=== PATIENT | male | born 1995 | race American Indian/Alaskan Native ===

== ENCOUNTER 2022-12-13 01:45 | Emergency (ER) | payer OTHER, SELFPAY ==
[2022-12-13 01:52] VITALS: BP 117/81; BP 130/80; PULSE 100; PULSE 86; RESP 18; TEMP 36.8; O2SAT 97; O2SAT 98; BMI 29.8
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
--- NOTE | 2022-12-13 03:08 | ED.ALCOHOL ---
HPI - Alcohol General Chief Complaint: ETOH/Substance Use Stated Complaint: etoh Time Seen by Provider: 12/13/22 02:24 Source: patient and EMS Mode of arrival: EMS Limitations: no limitations History of Present Illness HPI narrative: Patient comes to the emergency room via ambulance. Patient is intoxicated. Patient brought to the ED. Patient denies SI or HI. Patient denies any injuries or falling. Patient states he has no sober ride to pick him up. Related Data Allergies Allergy/AdvReac Type Severity Reaction Status Date / Time Milk Containing Products Allergy Unknown UNKNOWN Unverified 12/02/19 19:25 (Dairy) [MILK CONTAINING PRODUCTS] Review of Systems Review of Systems: Constitutional : No Weight loss, No Fever, No Chills, No Night Sweats, No Fatigue, No Malaise ENT/Mouth : No Hearing loss, No Ear Pain, No Nasal Congestion, No Sinus Pain, No Hoarseness, No sore throat, No Rhinorrhea, No Swallowing Difficulty Eyes: No Eye Pain, No Swelling, No Redness, No Foreign Body, No Discharge, No Vision Changes Cardiovascular : No Chest Pain, No SOB, No Dyspnea on Exertion, No Orthopnea, No Edema, No Palpitations Respiratory : No Cough, No Sputum, No Wheezing, No Smoke Exposure, No Dyspnea Gastrointestinal : No Nausea, No Vomiting, No Diarrhea, No Constipation, No abdominal Pain, No Hematochezia, No Melena Genitourinary : no irregular bleeding, No Dysuria, No Urinary Frequency, No Hematuria, No Urinary Incontinence, No Urgency, No Flank Pain, No Urinary Flow Changes, No Hesitancy Musculoskeletal : No joint pain, No Myalgias, No Joint Swelling Skin : No Skin Lesions, No rash Neuro : No Weakness, No Numbness, No Paresthesias, No Loss of Consciousness, No Dizziness, No Headache Psych : No Anxiety/Panic, No Depression, No SI/HI/AH/VH, admits to drinking alcohol Heme/Lymph: No Bruising, No Bleeding,No Lymphadenopathy Endocrine : No Polyuria, No Polydipsia, No Temperature Intolerance PMFSH Past Medical History Medical History Alcohol abuse Social History Social History Alcohol intake: current Smoked in Last 30 Days: Yes Use of substances other than those prescribed or required for medical reasons: Yes Substance Use Type: Marijuana Substance Use Frequency: Chronic Longstanding Advance Directives: No Advance Directives Information Provided: Yes Physical Exam ED Vital Signs: Vital Signs - 24 hr 12/13/22 01:52 12/13/22 03:33 Temperature 98.2 F 98.2 F Pulse Rate 100 88 Respiratory Rate 18 16 Blood Pressure 117/81 103/50 L Pulse Oximetry 97 98 Oxygen Delivery Method Room Air Room Air BMI result Body Mass Index 29.8 Const Other: Appearance: Alert. Oriented X3. No acute distress. Intoxicated Eyes: Pupils equal, round and reactive to light. ENT: Pharynx normal. Neck: Normal inspection. Neck supple. No lymph nodes noted. No crepitus CVS: Normal heart rate and rhythm. Pulses normal. Normal S1 and S2 Respiratory: No respiratory distress. Breath sounds normal. No Wheezing. No rales Abdomen: Soft and nontender. No rigidity. No distention. Skin: Skin warm and dry. Normal skin color. Normal skin turgor. Extremities: No lower extremity edema. No Lacerations. No Rash Neuro: Oriented X 3. No motor deficit. No sensory deficit. Moving all extremities. No slurred speech. CN 2 through 12 grossly intact Psych: calm, cooperative, intoxicated Course Course Course Narrative: -patient is awake, alert and oriented x3, but intoxicated -patient denies SI or HI, no trauma -patient does not have a sober ride -plan: Metabolized to freedom -physician observation started at 03:00 Medical Decision Making Medical Decision Making [facility] Narrative: -patient's called and over for the patient. Patient will be going home soon. Patient awake, alert, stable vitals Differential Diagnosis Differential Diagnoses: The differential diagnosis associated with the presentation includes (Alcohol intoxication, substance abuse) Discharge Plan Discharge Clinical Impression: Alcoholic intoxication Patient Disposition: Home, Self-Care Instructions: Alcohol Intoxication (ED) Additional Instructions: Please follow-up with your primary care physician tomorrow. If you have any worsening or new symptoms, please return to the emergency room or call 911
[2022-12-13 03:33] VITALS: BP 103/50; PULSE 88; RESP 16; TEMP 36.8; O2SAT 98
--- NOTE | 2022-12-13 03:41 | MHC.EDTECH ---
THIS PCT ASSUMED CARE OF PT AT 0300 ,PT SLEEPING ,VITALS SIGN TAKEN ,PT IS COMFORTABLE AND HAS NO APPARANT DISTRESS ,WILL CONTINUE TO MONITOR .
== END 2022-12-13 04:39 | disposition home or self-care (01) ==
LOC: HO.ED 04:30
PROVIDERS: Emergency Provider Emergency Medicine; PCP Internal Medicine
DX: F10.129 Alcohol abuse with intoxication, unspecified (principal); Y90.9 Presence of alcohol in blood, level not specified
CPT/HCPCS: 99282; 99284

== ENCOUNTER 2024-03-11 07:46 | Emergency (ER) | payer OTHER, SELFPAY ==
[2024-03-11 07:58] VITALS: BP 165/81; PULSE 89; RESP 16; TEMP 37; O2SAT 100; BMI 26.2
== END 2024-03-11 09:31 | disposition left against medical advice (07) ==
LOC: HO.ED 09:30
PROVIDERS: Emergency Provider Emergency Medicine
DX: M79.10 Myalgia, unspecified site (principal); Z53.21 Procedure and treatment not carried out due to patient leaving prior to being seen by health care provider
CPT/HCPCS: 99281

== ENCOUNTER 2024-03-12 04:09 | Emergency (ER) | payer OTHER, SELFPAY ==
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
--- NOTE | ~2024-03-12 | XR_ITS ---
EXAMINATION: XR CHEST CLINICAL INFORMATION: trauma COMPARISON: None available. TECHNIQUE: 2 views of the chest were obtained. FINDINGS: The cardiac, hilar, and mediastinal contours are normal. The lungs are clear bilaterally. There is no pneumothorax or pleural effusion. There is no focal osseous or soft tissue abnormality. No fracture is evident. XR/XR chest 2V IMPRESSION: Normal chest. Electronically signed by: Brandyn Elias MD 03/12/2024 09:17 AM [facility]
[2024-03-12 04:14] VITALS: BP 137/95; BP 147/97; PULSE 102; PULSE 98; RESP 18; TEMP 36.5; O2SAT 100; O2SAT 97; BMI 26.9
[2024-03-12 04:38] LABS: Basophils Percent Auto 0.3 % (0-2); Eosinophils Absolute Auto 0.3 X10*3/uL (0.0-0.4); Eosinophils Percent Auto 2.8 % (0-4); Hematocrit 42.8 % (42.0-52.0); Hemoglobin 14.7 g/dl (14.0-18.0); Imm Gran Abs Auto 0.02 X10*3/uL (0.00-0.03); Imm Gran Pct Auto 0.2 % (0.0-0.4); Lymphocytes Percent Auto 30.6 % (20-40); MANUAL DIFF FLAG SCAN; Mean Corpuscular HGB Conc 34.3 g/dl (31.0-36.0); Mean Corpuscular Hemoglobin 31.5 pg (27.0-33.0); Mean Corpuscular Volume 91.6 fL (80.0-98.0); Mean Platelet Volume 9.7 fL (9.4-12.4); Monocytes Absolute Auto 1.7 X10*3/uL (0.1-1.2); Monocytes Percent Auto 16.9 % (2-11); Neutrophils Absolute Auto 4.8 x10*3/uL (2.0-8.3); Neutrophils Percent Auto 49.2 % (45-73); Platelet Count 310 X10*3/uL (160-400); Red Blood Count 4.67 X10*6/uL (4.60-5.80); Red Cell Distribution Width 13.9 % (11.0-16.0); SCAN SMEAR FLAG 1; White Blood Count 9.8 X10*3/uL (4.8-10.8)
[2024-03-12 04:55] LABS: Alanine Aminotransferase 22 U/L (0-40); Albumin Level 4.7 g/dL (3.5-5.0); Alkaline Phosphatase 61 U/L (39-117); Anion Gap 13 (12-20); Aspartate Amino Transferase 25 U/L (5-37); Bilirubin Total 0.3 mg/dL (0.0-1.0); Blood Urea Nitrogen 4 mg/dL (9-16); Calcium 9.4 mg/dL (8.4-10.2); Carbon Dioxide 28 mmol/L (22-29); Chloride 101 mmol/L (96-108); Creatinine Clr Calc Pharmacy 142.9; Estimated Glomerular Filt Rate > 60; Ethanol < 10 mg/dL; Glucose Fasting 101 mg/dL (60-99); Potassium 3.6 mmol/L (3.3-5.1); Sodium 138 mmol/L (135-145); Total Protein 7.8 g/dL (6.5-8.0)
[2024-03-12 05:07] LABS: SLIDE REVIEW VERIFIED
[2024-03-12 05:12] LABS: Amphetamine Screen Urine Not Detected (Not Detect); Barbiturates, Urine Not Detected (Not Detect); Benzodiazepines Screen Urine Not Detected (Not Detect); Buprenorphine Scr Not Detected (Not Detect); Cannabinoid Screen Urine POSITIVE (Not Detect); Cocaine Screen Urine Not Detected (Not Detect); Fentanyl, urine Not Detected (Not Detect); Methadone Screen, Urine Not Detected (Not Detect); Opiate Screen Urine Not Detected (Not Detect); Oxycodone Screen Urine Not Detected (Not Detect); Phencyclidine Screen Urine Not Detected (Not Detect)
[2024-03-12 06:18] VITALS: BP 123/79; PULSE 81; RESP 16; TEMP 36.8; O2SAT 98
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
--- NOTE | 2024-03-12 08:15 | PC.NURSE ---
calm and cooperative in bed. aware of plan for care team eval. denies SI at this time. sitter at bedside,.
[2024-03-12 08:25] VITALS: BP 130/74; PULSE 85; RESP 14; TEMP 37.1; O2SAT 97
--- NOTE | 2024-03-12 09:03 | PC.NURSE ---
this patient was brought over from main ED at 9am, upon coming over to the POD- care team currently speaking with patient
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
--- NOTE | 2024-03-12 13:16 | MHC.CARE ---
Pt denies SI with any plan or intent at this time. Pt is able to safety plan at this time and will be discharged at this time. Provider in agreement.
[2024-03-12 13:37] VITALS: BP 128/73; PULSE 86; RESP 16; TEMP 36.7; O2SAT 97
== END 2024-03-12 13:38 | disposition home or self-care (01) ==
PROVIDERS: Emergency Provider Emergency Medicine
DX: F33.1 Major depressive disorder, recurrent, moderate (principal); M79.10 Myalgia, unspecified site; R51.9 Headache, unspecified; M54.2 Cervicalgia; R07.89 Other chest pain; R45.851 Suicidal ideations; Z51.81 Encounter for therapeutic drug level monitoring; Z79.899 Other long term (current) drug therapy
CPT/HCPCS: 36415; 70450; 71046; 72125; 80053; 80307; 85025; 99284; S9485

== ENCOUNTER → 2024-03-12 07:36 | Outpatient (BNV) | payer OTHER, SELFPAY | PROVIDERS: Emergency Provider Emergency Medicine; Visit Provider Radiology Diagnostic Radiology | DX: M54.2 Cervicalgia (principal); J34.9 Unspecified disorder of nose and nasal sinuses; R07.9 Chest pain, unspecified | CPT/HCPCS: 70450; 71046; 72125 ==

== ENCOUNTER 2024-03-15 10:25 | Emergency (ER) | payer OTHER, SELFPAY ==
[2024-03-15 10:42] VITALS: BP 138/98; PULSE 111; RESP 20; TEMP 36.1; O2SAT 100; BMI 25.8
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
[2024-03-15 11:27] LABS: MANUAL DIFF FLAG NO
[2024-03-15 11:29] LABS: Basophils Percent Auto 0.3 % (0-2); Eosinophils Absolute Auto 0.1 X10*3/uL (0.0-0.4); Eosinophils Percent Auto 1.3 % (0-4); Hemoglobin 15.4 g/dl (14.0-18.0); Imm Gran Abs Auto 0.01 X10*3/uL (0.00-0.03); Imm Gran Pct Auto 0.1 % (0.0-0.4); Lymphocytes Absolute Auto 2.6 X10*3/uL (1.2-4.9); Lymphocytes Percent Auto 36.7 % (20-40); Mean Corpuscular HGB Conc 34.2 g/dl (31.0-36.0); Mean Corpuscular Volume 93.4 fL (80.0-98.0); Mean Platelet Volume 9.7 fL (9.4-12.4); Monocytes Absolute Auto 0.7 X10*3/uL (0.1-1.2); Monocytes Percent Auto 9.6 % (2-11); Neutrophils Absolute Auto 3.6 x10*3/uL (2.0-8.3); Platelet Count 330 X10*3/uL (160-400); Red Blood Count 4.82 X10*6/uL (4.60-5.80); Red Cell Distribution Width 13.7 % (11.0-16.0)
[2024-03-15 11:43] LABS: Alanine Aminotransferase 19 U/L (0-40); Albumin Level 4.6 g/dL (3.5-5.0); Alkaline Phosphatase 56 U/L (39-117); Anion Gap 13 (12-20); Aspartate Amino Transferase 20 U/L (5-37); Bilirubin Direct < 0.2 mg/dL (0.0-0.5); Bilirubin Total 0.2 mg/dL (0.0-1.0); Blood Urea Nitrogen 6 mg/dL (9-16); Calcium 9.7 mg/dL (8.4-10.2); Carbon Dioxide 29 mmol/L (22-29); Chloride 106 mmol/L (96-108); Estimated Glomerular Filt Rate > 60; Glucose Random 114 mg/dL (60-115); Potassium 4.7 mmol/L (3.3-5.1); Sodium 143 mmol/L (135-145); Total Protein 7.7 g/dL (6.5-8.0)
[2024-03-15 11:44] LABS: Ethanol < 10 mg/dL
[2024-03-15 13:34] VITALS: BP 138/98; PULSE 90; RESP 20; TEMP 36.1; O2SAT 100
== END 2024-03-15 13:35 | disposition home or self-care (01) ==
PROVIDERS: Emergency Provider Emergency Medicine
DX: J01.00 Acute maxillary sinusitis, unspecified (principal); R05.9 Cough, unspecified
CPT/HCPCS: 36415; 80048; 80076; 80307; 85025; 99283

== ENCOUNTER 2024-03-17 03:26 | Emergency (ER) | payer OTHER, SELFPAY ==
[2024-03-17 03:36] VITALS: BP 118/84; BP 135/87; PULSE 80; PULSE 98; RESP 16; TEMP 36.8; O2SAT 96; BMI 28.0
[2024-03-17 04:27] LABS: Appearance Urine Clear; Color Urine Yellow; Glucose Urine UA Negative (Negative); Leukocyte Esterase Urine Negative (Negative); Nitrite Urine Negative (Negative); Specific Gravity - Urine 1.015 (1.005-1.025); Urine Blood Negative (Negative); Urine Ketones Trace mg/dL (Negative); Urine Protein Negative (Neg-Trace)
[2024-03-17 04:33] LABS: Bacteria Urine None Seen (None Seen); Hyaline Casts Urine 0-2 /LPF (0-2); RBC Urine 0-2 /HPF (0-2); Squamous Epithelial Cell Urine 0-2 /HPF (0-2); WBC Urine 0-5 /HPF (0-5)
[2024-03-17 04:40] LABS: Amphetamine Screen Urine Not Detected (Not Detect); Barbiturates, Urine Not Detected (Not Detect); Benzodiazepines Screen Urine Not Detected (Not Detect); Buprenorphine Scr Not Detected (Not Detect); Cannabinoid Screen Urine POSITIVE (Not Detect); Cocaine Screen Urine Not Detected (Not Detect); Fentanyl, urine Not Detected (Not Detect); Methadone Screen, Urine Not Detected (Not Detect); Opiate Screen Urine Not Detected (Not Detect); Oxycodone Screen Urine Not Detected (Not Detect); Phencyclidine Screen Urine Not Detected (Not Detect)
[2024-03-17 04:49] LABS: Basophils Percent Auto 0.2 % (0-2); Eosinophils Absolute Auto 0.3 X10*3/uL (0.0-0.4); Eosinophils Percent Auto 2.3 % (0-4); Hematocrit 42.6 % (42.0-52.0); Imm Gran Abs Auto 0.02 X10*3/uL (0.00-0.03); Imm Gran Pct Auto 0.2 % (0.0-0.4); Lymphocytes Absolute Auto 4.2 X10*3/uL (1.2-4.9); Lymphocytes Percent Auto 38.9 % (20-40); MANUAL DIFF FLAG NO; Mean Corpuscular HGB Conc 35.2 g/dl (31.0-36.0); Mean Corpuscular Hemoglobin 32.1 pg (27.0-33.0); Mean Platelet Volume 9.5 fL (9.4-12.4); Monocytes Absolute Auto 0.9 X10*3/uL (0.1-1.2); Monocytes Percent Auto 8.4 % (2-11); Neutrophils Absolute Auto 5.4 x10*3/uL (2.0-8.3); Platelet Count 345 X10*3/uL (160-400); Red Blood Count 4.68 X10*6/uL (4.60-5.80); Red Cell Distribution Width 13.8 % (11.0-16.0); White Blood Count 10.9 X10*3/uL (4.8-10.8)
[2024-03-17 05:02] LABS: Alanine Aminotransferase 18 U/L (0-40); Albumin Level 4.5 g/dL (3.5-5.0); Alkaline Phosphatase 55 U/L (39-117); Anion Gap 13 (12-20); Aspartate Amino Transferase 26 U/L (5-37); Bilirubin Total 0.3 mg/dL (0.0-1.0); Blood Urea Nitrogen 6 mg/dL (9-16); Calcium 9.2 mg/dL (8.4-10.2); Carbon Dioxide 24 mmol/L (22-29); Chloride 109 mmol/L (96-108); Creatinine Clr Calc Pharmacy 160.5; Estimated Glomerular Filt Rate > 60; Ethanol 57 mg/dL; Glucose Random 104 mg/dL (60-115); Sodium 142 mmol/L (135-145); Total Protein 7.4 g/dL (6.5-8.0)
[2024-03-17 05:24] VITALS: BP 124/95; PULSE 90; RESP 18; TEMP 36.8; O2SAT 98
[2024-03-17 05:26] LABS: Influenza A PCR NEGATIVE (Negative); Influenza B PCR NEGATIVE (Negative); Resp Syncy Virus RNA Qual PCR NEGATIVE (Negative); SARS COV2 PCR INHOUSE NEGATIVE (Negative)
--- NOTE | 2024-03-17 06:07 | PC.NURSE ---
this rn assumed care of pt, pt a&ox4, respirations even and unlabored. pt states he will speak later and does not wish to speak to this rn at this time. 1:1 sitter at bedside.
--- NOTE | 2024-03-17 06:43 | ED_ITS ---
HPI - General Adult General Chief complaint: Psychiatric Symptoms Stated complaint: Sect 12 Made SI Statements w/plan to jump in river Time Seen by Provider: 03/17/24 06:36 Source: patient and EMS Mode of arrival: EMS Limitations: no limitations History of Present Illness ED Provider: Talia Li PA-C HPI narrative: Patient is a 29 year old assigned male at with a history of alcohol abuse presenting to the emergency department today with suicidal ideation. Patient declined to answer any questions asked about his suicidal ideation at this time continually stating that he'd talk about it later . EMS states that the patient was arrested for a DUI earlier and when making bail he made comments to people about being suicidal and stating he'd jump into the river. Patient denies any dizziness, lightheadedness, abdominal pain, nausea, vomiting, fever, chills, blurry vision, double vision, loss of vision, chest pain, difficulty breathing, shortness of breath, back pain, night sweats, pain with urination, increased urinary frequency, increased urinary urgency, blood in his urine or stool, syncope or a near syncopal episode, recent trauma or falls, bowel incontinence, bladder incontinence, or any other complaints at this time. Relieving factors: none Exacerbating factors: none Associated symptoms: denies other symptoms Treatments prior to arrival: none Related Data Home Medications ?Medication ?Instructions ?Recorded ?Confirmed No Known Home Meds 03/17/24 03/17/24 Allergies Allergy/AdvReac Type Severity Reaction Status Date / Time Milk Containing Products Allergy Unknown UNKNOWN Verified 03/17/24 03:37 (Dairy) [MILK CONTAINING PRODUCTS] Review of Systems 2 Constitutional: Constitutional: Reports no additional constitutional complaints, Denies chills, Denies fever(s) and Denies night sweats Eyes: Eyes: Reports no additional eye complaints, Denies blurry vision, Denies change in vision, Denies diplopia, Denies eye discharge, Denies loss of vision and Denies eye pain ENT: Denies dizziness Cardiovascular: Cardiovascular: Reports no additional cardiovascular complaints, Denies chest pain, Denies lightheadedness, Denies Loss of Consciousness and Denies dyspnea Respiratory: Respiratory: Reports no additional respiratory complaints and Denies dyspnea Gastrointestinal: Gastrointestinal: Reports no additional gastrointestinal complaints, Denies abdominal pain, Denies melena, Denies hematochezia, Denies change in bowel habits and Denies change in stool character Genitourinary: Genitourinary: Reports no additional male genitourinary complaints, Denies hematuria, Denies oliguria, Denies difficulty urinating, Denies dysuria, Denies urinary frequency, Denies urinary hesitancy, Denies urinary incontinence and Denies urinary urgency Musculoskeletal: Musculoskeletal: Reports no additional musculoskeletal complaints, Denies numbness and Denies tingling Neurologic: Denies dizziness, Denies loss of vision, Denies numbness and Denies tingling Psychiatric: Psychiatric: Reports no additional psychiatric complaints and Reports suicidal ideation (per EMS - patient is currently refusing to confirm or elaborate) Endocrine: Endocrine: Reports no additional endocrine complaints Hematologic/Lymphatic: Hematologic/Lymphatic: Reports no additional hematologic/lymphatic complaints Allergic/Immunologic: Allergic/Immunologic: Reports no additional allergic/immunologic complaints PMFSH Past Medical History Attestation statement: The following information was validated with the patient. Source: old records reviewed and nursing notes reviewed Medical History Alcohol abuse Social History Social History Alcohol intake: current Substance Use Type: Marijuana Advance Directives: No Do you have a plan to hurt others: No Plan Physical Exam ED Vital Signs: Vital Signs - 24 hr 03/17/24 03:36 03/17/24 05:24 Temperature 98.2 F 98.2 F Pulse Rate 98 90 Respiratory Rate 16 18 Blood Pressure 135/87 124/95 H Pulse Oximetry 96 98 Oxygen Delivery Method Room Air Room Air BMI result Body Mass Index 28.0 Const General: cooperative, no acute distress, alert and awake Nutritional Appearance: well nourished Orientation/consciousness: patient oriented x3 Limitations: no limitations HENMT Head: Yes normal to inspection and Yes atraumatic Ears: hearing grossly normal bilaterally and external ears normal General nose exam: Normal external nose present, no nasal discharge noted and no epistaxis Face and sinus: Yes normal facial exam, No abrasion and No laceration Mouth: Normal oral and palatal mucosa present, no drooling and no muffled voice Eyes General: appearance normal, both eyes and all related structures Periorbital: periorbital findings normal Eyelids: Yes eyelids normal Conjunctivae: conjunctivae normal Pupils: Equal, round and reactive pupils present EOM: EOMs intact bilaterally Neck Neck: Yes normal visual inspection, Yes full ROM and Yes no lymphadenopathy Chest Chest palpation & inspection: normal inspection of the chest Resp Effort & Inspection: normal respiratory effort and able to speak in complete sentences GI Inspection: Yes normal to inspection Neuro General: patient oriented x3 and moves all extremities Cranial nerves: Yes Equal, round and reactive pupils present Cognition (Neuro): normal cognition Extrem General: Yes normal to inspection, Yes full ROM and Yes capillary refill normal Psych Appearance: grossly normal Mental Status: mental status grossly normal Affect: normal affect Attitude: Guarded attititude/behavior present and Refuses to answer (attititude/behavior) (any questions regarding his suicidal ideation) Thought process: Normal thought process present Medical Decision Making Medical Decision Making MDM Narrative: Patient is a 29 year old assigned male at with a history of alcohol abuse presenting to the emergency department today with suicidal ideation. Patient's physical exam was as noted in the physical exam portion of this note. Patient's blood work showed an alcohol level of 57 but were otherwise unremarkable. Patient's urine showed no acute process. I explained my physical exam findings as well as all test results to the patient. I answered all questions asked by the patient. Patient's disposition is pending CARE Team evaluation. 1040 ---> Patient evaluated by the CARE team and they recommended discharge. Observation care revealed the the patient does not meet medical necessity for hospitalization. Final disposition discussed with the patient who verbalized understanding and agreement. Patient completed observation care at 1040, total time spent in observation care was 4 hours and 0 minutes. Differential Diagnosis Differential Diagnoses: The differential diagnosis associated with the presentation includes Suicidal ideation Alcohol use Admission/Observation Consideration of admission/observation: Escalation of care including admission/observation considered Patient would have been admitted to the hospital had his work up had any findings where hospital admission was appropriate and his clinical presentation warranted hospital admission. Consult Healthcare Provider Management of the patient was discussed with: Behavioral Health Provider (spoke to the CARE Team as noted in the MDM Rationale portion of this note.) Lab Data [facility] Lab Attestation statement: I reviewed the patient's lab results. My interpretation of these results are in the MDM Rationale portion of this note. 03/17/24 04:43 03/17/24 04:44 Labs: Lab Results 03/17/24 03/17/24 03/17/24 Range/Units 04:19 04:43 04:44 WBC 10.9 H (4.8-10.8) X10*3/uL RBC 4.68 (4.60-5.80) X10*6/uL Hgb 15.0 (14.0-18.0) g/dl Hct 42.6 (42.0-52.0) % MCV 91.0 (80.0-98.0) fL MCH 32.1 (27.0-33.0) pg MCHC 35.2 (31.0-36.0) g/dl RDW 13.8 (11.0-16.0) % Plt Count 345 (160-400) X10*3/uL MPV 9.5 (9.4-12.4) fL Immature Gran % (Auto) 0.2 (0.0-0.4) % Neut % (Auto) 50.0 (45-73) % Lymph % (Auto) 38.9 (20-40) % [place] % (Auto) 8.4 (2-11) % Eos % (Auto) 2.3 (0-4) % Baso % (Auto) 0.2 (0-2) % Lymph # (Auto) 4.2 (1.2-4.9) X10*3/uL [place] # (Auto) 0.9 (0.1-1.2) X10*3/uL Eos # (Auto) 0.3 (0.0-0.4) X10*3/uL Baso # (Auto) 0.0 (0.0-0.2) X10*3/uL Abs Immat Gran (auto) 0.02 (0.00-0.03) X10*3/uL Absolute Neuts (auto) 5.4 (2.0-8.3) x10*3/uL Absolute Nucleated RBC 0.000 (0.0-0.012) X10*3/uL Nucleated RBC % (auto) 0.0 (0.0-0.2) /100WBC Sodium 142 (135-145) mmol/L Potassium 4.0 (3.3-5.1) mmol/L Chloride 109 H (96-108) mmol/L Carbon Dioxide 24 (22-29) mmol/L Anion Gap 13 (12-20) BUN 6 L (9-16) mg/dL Creatinine 0.68 (0.5-1.4) mg/dL Estim Creat Clear Calc 160.5 Estimated GFR > 60 Random Glucose 104 (60-115) mg/dL Calcium 9.2 (8.4-10.2) mg/dL Total Bilirubin 0.3 (0.0-1.0) mg/dL AST 26 (5-37) U/L ALT 18 (0-40) U/L Alkaline Phosphatase 55 (39-117) U/L Total Protein 7.4 (6.5-8.0) g/dL Albumin 4.5 (3.5-5.0) g/dL Urine Color Yellow Urine Appearance Clear Urine pH 5.0 (5.0-9.0) Ur Specific [place] 1.015 (1.005-1.025) Urine Protein Negative (Neg-Trace) mg/dL Urine Glucose (UA) Negative (Negative) mg/dL Urine Ketones Trace (Negative) mg/dL Urine Blood Negative (Negative) Urine Nitrite Negative (Negative) Ur Leukocyte Esterase Negative (Negative) Urine RBC 0-2 (0-2) /HPF Urine WBC 0-5 (0-5) /HPF Ur Squamous Epith Cells 0-2 (0-2) /HPF Urine Bacteria None Seen (None Seen) Hyaline Casts 0-2 (0-2) /LPF Urine Opiates Screen Not Detected (Not Detect) Ur Buprenorphine Scrn Not Detected (Not Detect) ng/mL Ur Oxycodone Screen Not Detected (Not Detect) ng/mL Urine Methadone Screen Not Detected (Not Detect) ng/mL Urine Fentanyl Screen Not Detected (Not Detect) Ur Barbiturates Screen Not Detected (Not Detect) Ur Phencyclidine Scrn Not Detected (Not Detect) Ur Amphetamines Screen Not Detected (Not Detect) U Benzodiazepines Scrn Not Detected (Not Detect) Urine Cocaine Screen Not Detected (Not Detect) U Marijuana (THC) Screen POSITIVE H (Not Detect) Ethyl Alcohol 57 mg/dL Influenza Type A (PCR) NEGATIVE (Negative) Influenza Type B (PCR) NEGATIVE (Negative) RSV RNA Qual (PCR) NEGATIVE (Negative) SARS-CoV-2 RNA (RT-PCR) NEGATIVE (Negative) Independent Historian Clinical information obtained from an independent historian. History obtained from or confirmed by: EMS (EMS provided additional history and confirmed the history provided by the patient.) Critical Care Time Critical Care Time Critical Care Time: Yes Total Critical Care Time: 31 Attestation: I spent 31 minutes of Critical Care Time with this patient. This does not include time spent on separately reported billable procedures. Discharge Plan Discharge Clinical Impression: Alcohol abuse Patient Disposition: Home, Self-Care Instructions: Abuse of Alcohol (ED) Additional Instructions: Follow up with your primary care provider. Return to the emergency department immediately if your symptoms worsen or if you develop any dizziness, shortness of breath, difficulty breathing, chest pain, blurry vision, loss of vision, nausea, vomiting, abdominal pain, fever, chills, back pain, or any other complaints. Formerly [facility], Later [facility] ([facility]) at [facility]: [address] [place] [id number] Walk in hours from 10am - 12pm Open from 10am - 12pm [facility] Crisis Services: [address] [place] [address] Walk in hours from 10am - 12pm Open 07/10 Behavioral health Network: [address] [place] [id number] [address] [place] [id number] Hours: M-F 8am to 8pm Friday and Friday 9am to 5pm Prescriptions: No Action No Known Home Meds Print Language: [place] Citizen
--- NOTE | 2024-03-17 09:20 | PHA.MEDREC ---
Pharmacy Consult ? Medication Reconciliation Pharmacy has completed the medication reconciliation. Patient confirmed they are no longer taking any medications at home including OTC
[2024-03-17 10:49] VITALS: BP 124/95; PULSE 90; RESP 18; TEMP 36.8; O2SAT 98
== END 2024-03-17 10:50 | disposition home or self-care (01) ==
PROVIDERS: Emergency Provider Emergency Medicine
DX: F10.10 Alcohol abuse, uncomplicated (principal); Y90.2 Blood alcohol level of 40-59 mg/100 ml; R45.851 Suicidal ideations; Z03.818 Encounter for observation for suspected exposure to other biological agents ruled out
CPT/HCPCS: 0241U; 80053; 80307; 81001; 85025; 99284; S9485

== ENCOUNTER 2024-04-27 11:47 | Inpatient (IN) | payer OTHER, SELFPAY ==
[2024-04-27 11:56] VITALS: BP 142/86; BP 152/75; PULSE 113; PULSE 90; RESP 16; TEMP 37.1; O2SAT 100; BMI 26.6
[2024-04-27 11:59] VITALS: RESP 16
--- NOTE | 2024-04-27 12:15 | MHC.EDTECH ---
Patient refusing providing urine sample
[2024-04-27] MEDS: LORazepam 1 MG TABLET 2 MG PO (12:18)
[2024-04-27] MEDS: diphenhydrAMINE HCL 25 MG CAPSULE 50 MG PO (12:19)
[2024-04-27] MEDS: HaloperidoL 5 MG TABLET PO (12:19)
--- NOTE | 2024-04-27 12:19 | PC.NURSE ---
Lul comes in today from the streets reporting that he hasnt slept in 45 days . Patient is very manic upon arrival, pressured speech. pt originally refusing to exchange engineer, required security assistance. Patient was difficult to redirect. Patient did willingly take PO Ativan, Benadryl, Haldol
--- NOTE | 2024-04-27 12:37 | ED_ITS ---
HPI - General Adult General Chief complaint: Psychiatric Symptoms Stated complaint: CRISIS EVAL PER EMS Time Seen by Provider: 04/27/24 11:54 Source: patient Mode of arrival: EMS Limitations: other (Clinical condition) History of Present Illness HPI narrative: This is a 29-year-old man with unknown past medical history who is brought in by EMS. Per triage note, patient secretion waiting down PD. Patient provides no meaningful history at this time. Related Data Home Medications ?Medication ?Instructions ?Recorded ?Confirmed No Known Home Meds 03/17/24 04/27/24 Allergies Allergy/AdvReac Type Severity Reaction Status Date / Time Milk Containing Products Allergy Unknown UNKNOWN Verified 04/27/24 12:52 (Dairy) [MILK CONTAINING PRODUCTS] Review of Systems 2 Review of Systems: ROS as per HPI PMFSH Past Medical History Medical History Alcohol abuse Social History Social History (System 04/27/24 @ 12:52 by Tanna Claros) Unable to assess alcohol history related to: Refusing to respond Alcohol intake: current Use of substances other than those prescribed or required for medical reasons: Refusing to respond Substance Use Type: Marijuana Physical Exam ED Vital Signs: Vital Signs - 24 hr 04/27/24 11:56 04/27/24 11:59 04/27/24 18:34 Temperature 98.7 F Pulse Rate 90 Respiratory Rate 16 16 16 Blood Pressure 152/75 H Pulse Oximetry 100 Oxygen Delivery Method Room Air BMI result Body Mass Index 26.6 Gen: Restless, awake, alert HEENT: NCAT, EOMI, normal conjunctiva Neuro: Grossly non focal Medications Administered Discontinued Medications Generic Name Dose Route Start Last Admin Trade Name Rohanq PRN Reason Stop Dose Admin Diphenhydramine HCl 50 mg 04/27/24 12:06 04/27/24 12:19 Diphenhydramine Hcl 25 Mg Capsule PO 04/27/24 12:07 50 mg ONCE ONE Administration Diphenhydramine HCl 50 mg 04/27/24 18:46 04/27/24 18:40 Diphenhydramine Hcl 50 Mg/Ml Vial IM 04/27/24 18:47 50 mg ONCE ONE Administration Haloperidol 5 mg 04/27/24 12:06 04/27/24 12:19 Haloperidol 5 Mg Tablet PO 04/27/24 12:07 5 mg ONCE ONE Administration Haloperidol Lactate 10 mg 04/27/24 18:46 04/27/24 18:50 Haloperidol Lactate 5 Mg/Ml Vial IM 04/27/24 18:47 10 mg STAT STA Administration Lorazepam 2 mg 04/27/24 12:06 04/27/24 12:18 Lorazepam 1 Mg Tablet PO 04/27/24 12:07 2 mg ONCE ONE Administration Lorazepam 2 mg 04/27/24 18:46 04/27/24 18:50 Lorazepam 2 Mg/Ml Vial IM 04/27/24 18:47 2 mg STAT STA Administration Medical Decision Making Medical Decision Making MDM Narrative: Differential diagnosis includes, but is not limited to decompensated psychiatric illness, substance use. Care is transitioned to the oncoming physician, Dr. Belle, at the end of my shift at 9:00 p.m. with disposition pending psychiatric evaluation. Admission/Observation Consideration of admission/observation: Escalation of care including admission/observation considered Lab Data [facility] Lab Attestation statement: I reviewed the patient's lab results. I independently reviewed and interpreted patient's labs including CBC, metabolic panel, acetaminophen level, salicylate level and ethanol level, which are benign and reassuring. 04/27/24 12:38 04/27/24 12:38 Labs: Lab Results 04/27/24 Range/Units 12:38 WBC 7.2 (4.8-10.8) X10*3/uL RBC 4.70 (4.60-5.80) X10*6/uL Hgb 14.8 (14.0-18.0) g/dl Hct 43.3 (42.0-52.0) % MCV 92.1 (80.0-98.0) fL MCH 31.5 (27.0-33.0) pg MCHC 34.2 (31.0-36.0) g/dl RDW 12.8 (11.0-16.0) % Plt Count 370 (160-400) X10*3/uL MPV 10.0 (9.4-12.4) fL Immature Gran % (Auto) 0.3 (0.0-0.4) % Neut % (Auto) 60.7 (45-73) % Lymph % (Auto) 26.2 (20-40) % [place] % (Auto) 11.0 (2-11) % Eos % (Auto) 1.4 (0-4) % Baso % (Auto) 0.4 (0-2) % Lymph # (Auto) 1.9 (1.2-4.9) X10*3/uL [place] # (Auto) 0.8 (0.1-1.2) X10*3/uL Eos # (Auto) 0.1 (0.0-0.4) X10*3/uL Baso # (Auto) 0.0 (0.0-0.2) X10*3/uL Abs Immat Gran (auto) 0.02 (0.00-0.03) X10*3/uL Absolute Neuts (auto) 4.4 (2.0-8.3) x10*3/uL Absolute Nucleated RBC 0.000 (0.0-0.012) X10*3/uL Nucleated RBC % (auto) 0.0 (0.0-0.2) /100WBC Sodium 140 (135-145) mmol/L Potassium 4.4 (3.3-5.1) mmol/L Chloride 106 (96-108) mmol/L Carbon Dioxide 27 (22-29) mmol/L Anion Gap 11 L (12-20) BUN 3 L (9-16) mg/dL Creatinine 0.68 (0.5-1.4) mg/dL Estim Creat Clear Calc 126.6 Estimated GFR > 60 Random Glucose 105 (60-115) mg/dL Calcium 9.8 D (8.4-10.2) mg/dL Total Bilirubin 0.4 (0.0-1.0) mg/dL AST 24 (5-37) U/L ALT 18 (0-40) U/L Alkaline Phosphatase 59 (39-117) U/L Total Protein 8.4 H (6.5-8.0) g/dL Albumin 5.1 H (3.5-5.0) g/dL Salicylates < 5.0 L (15-30) mg/dL Acetaminophen < 3 (<30) mcg/mL Ethyl Alcohol < 10 mg/dL Discharge Plan Discharge Clinical Impression: Disorganized behavior Patient Disposition: Still a Patient Prescriptions: No Action No Known Home Meds Interventions: [place]-Suicide Risk Severity Scale Last Done: 04/27/24 11:59 Print Language: Turkmen
[2024-04-27 12:43] LABS: MANUAL DIFF FLAG NO
[2024-04-27 12:45] LABS: Basophils Percent Auto 0.4 % (0-2); Eosinophils Absolute Auto 0.1 X10*3/uL (0.0-0.4); Eosinophils Percent Auto 1.4 % (0-4); Hematocrit 43.3 % (42.0-52.0); Hemoglobin 14.8 g/dl (14.0-18.0); Imm Gran Abs Auto 0.02 X10*3/uL (0.00-0.03); Imm Gran Pct Auto 0.3 % (0.0-0.4); Lymphocytes Absolute Auto 1.9 X10*3/uL (1.2-4.9); Lymphocytes Percent Auto 26.2 % (20-40); Mean Corpuscular HGB Conc 34.2 g/dl (31.0-36.0); Mean Corpuscular Hemoglobin 31.5 pg (27.0-33.0); Mean Corpuscular Volume 92.1 fL (80.0-98.0); Monocytes Absolute Auto 0.8 X10*3/uL (0.1-1.2); Neutrophils Absolute Auto 4.4 x10*3/uL (2.0-8.3); Neutrophils Percent Auto 60.7 % (45-73); Platelet Count 370 X10*3/uL (160-400); Red Cell Distribution Width 12.8 % (11.0-16.0); White Blood Count 7.2 X10*3/uL (4.8-10.8)
[2024-04-27 13:14] LABS: Acetaminophen LAB < 3 mcg/mL (<30); Alanine Aminotransferase 18 U/L (0-40); Albumin Level 5.1 g/dL (3.5-5.0); Alkaline Phosphatase 59 U/L (39-117); Anion Gap 11 (12-20); Aspartate Amino Transferase 24 U/L (5-37); Bilirubin Total 0.4 mg/dL (0.0-1.0); Blood Urea Nitrogen 3 mg/dL (9-16); Calcium 9.8 mg/dL (8.4-10.2); Carbon Dioxide 27 mmol/L (22-29); Chloride 106 mmol/L (96-108); Creatinine Clr Calc Pharmacy 126.6; Estimated Glomerular Filt Rate > 60; Ethanol < 10 mg/dL; Glucose Random 105 mg/dL (60-115); Potassium 4.4 mmol/L (3.3-5.1); Salicylate < 5.0 mg/dL (15-30); Sodium 140 mmol/L (135-145); Total Protein 8.4 g/dL (6.5-8.0)
--- NOTE | 2024-04-27 15:51 | MHC.CARE ---
T/W attempted to engage Pt in a LOC evaluation, Pt only looked at T/W and smiled and closed his eyes. He requested to be seen at a later time; CARE Team will attempt an assessment at a later time. CARE Team spoke with Pt's Mother and [id number] ([phone]) who report that they saw Pt in person earlier this morning where he presented significantly tearful. They had no significant insight on his recent/functioning as, however report that Pt has been struggling with his mental health. Pt has been irritable, arguing with himself and talking to himself and talking about fighting people on the street. No hx of mental health treatment besides therapy when he was younger. Spoke with Pt's ex (?) with who he lives with and their children (Arely Taveras; [phone]) for many years. She reports that Pt has been presenting with increased disorganization, incoherent speech, irritability, poor self care for the past 3 months. She reports Pt has displayed manic like behavior such as not sleeping for days. 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 just not this bad. She reports Pt does not have outpatient providers and is not prescribed psychiatric medications. She reports that she believes Pt is completely sober at this time other than occasional marijuana use which calms him down. She reports Pt has not expressed SI/HI and has no hx of SI attempts/SIB that she is aware of. Pt has been getting aggressive.. not towards people but he will throw things. At baseline, Pt is communicative, kind and sweet. Per Pt's brother he seemed to have mental health issues as a kid but everyone ignored them.
--- NOTE | 2024-04-27 18:33 | PC.NURSE ---
Pt awake, pacing around the BH pod, anxious. Requesting to be discharged
[2024-04-27 18:34] VITALS: RESP 16
[2024-04-27] MEDS: diphenhydrAMINE HCL 50 MG/ML VIAL IM (18:40)
[2024-04-27] MEDS: LORazepam 2 MG/ML VIAL IM (18:50)
[2024-04-27] MEDS: Haloperidol Lactate 5 MG/ML VIAL 10 MG IM (18:50)
--- NOTE | 2024-04-27 19:08 | PC.NURSE ---
Patient is ambulating around pod, pacing. Patient appears agitated stating that he wants to leave, aware that he can't leave, and stated I want to speak with a coal yard supervisor . Section [address], inpatient bed search.
--- NOTE | 2024-04-27 19:13 | PC.NURSE ---
Lul began escalating once awake. He started telling other patients to quiet down, then started punching the wall and threatening this RN. Verbal order for IM Haldol 10mg, Ativan 2mg and Benadryl 50mg. Patient willingly took all medications without issue, no need for physical hold. Patient continued to pace around BH pod after, reporting given to ANTONIA Bowman Patient refusing vital signs
--- NOTE | 2024-04-27 19:41 | PC.NURSE ---
Patient is resting comfortably, laying down in bed at this time. Respirations even/unlabored. Care ongoing by this RN.
--- NOTE | 2024-04-27 22:30 | MHC.CARE ---
CARE Team attempted to engage Pt in a LOC assessment x2, however he was unable to appropriately engage. Pt will be a F/U and is on a section 12A for safety.
[2024-04-27 23:58] LABS: Appearance Urine Clear; Color Urine Yellow; Glucose Urine UA Negative (Negative); Leukocyte Esterase Urine Negative (Negative); Nitrite Urine Negative (Negative); PH 7.5 (5.0-9.0); Urine Blood Negative (Negative); Urine Ketones Trace mg/dL (Negative); Urine Protein Negative (Neg-Trace)
--- NOTE | 2024-04-28 | ECG_ITS ---
Test Reason : med clearance Blood Pressure : */* mmHG Vent. Rate : 68 BPM Atrial Rate : 68 BPM P-R Int : 136 ms QRS Dur : 88 ms QT Int : 364 ms P-R-T Axes : 73 96 46 degrees QTcB Int : 387 ms Normal sinus rhythm with sinus arrhythmia Rightward axis Borderline ECG When compared with ECG of 08-May-2017 19:14, Vent. rate has decreased by 44 bpm Referred By: eLslee Oneill Electronically Signed By: TOM DO MD
[2024-04-28 00:18] LABS: Amphetamine Screen Urine Not Detected (Not Detect); Barbiturates, Urine Not Detected (Not Detect); Benzodiazepines Screen Urine Not Detected (Not Detect); Buprenorphine Scr Not Detected (Not Detect); Cannabinoid Screen Urine POSITIVE (Not Detect); Cocaine Screen Urine Not Detected (Not Detect); Fentanyl, urine Not Detected (Not Detect); Methadone Screen, Urine Not Detected (Not Detect); Opiate Screen Urine Not Detected (Not Detect); Oxycodone Screen Urine Not Detected (Not Detect); Phencyclidine Screen Urine Not Detected (Not Detect)
--- NOTE | 2024-04-28 01:50 | PC.NURSE ---
Patient continues to sleep. Respirations even/unlabored. No acute distress. Care ongoing by this RN.
--- NOTE | 2024-04-28 05:15 | PC.NURSE ---
Patient woke up and exited his room, with headphones in his hand. Patient was refusing to speak to this RN or any other staff, making a simple hand gesture (opening and closing a fist). This RN asked the patient how I can help him, and the patient became agitated stating I speak [place], Nepali, Faroese, Mauritian, Frisian, and all this stuff. I was using a universal language with you and you should understand it . Security happened to be present during this interaction. This RN plugged in the headphones to charge. Patient also requested a toothbrush & toothpaste. Ambulating around pod with steady gait.
[2024-04-28 06:32] VITALS: RESP 16
[2024-04-28 07:14] VITALS: BP 124/90; PULSE 118; RESP 16; TEMP 36.8; O2SAT 98
--- NOTE | 2024-04-28 07:20 | PC.NURSE ---
Assumed care of patient at 0645, patient appears to be in no apparent distress this am, calm and cooperative, offering no complaints. Continue plan of care for follow up
--- NOTE | 2024-04-28 08:02 | MHC.EDTECH ---
Patient requesting personal bible, removed pictures from book and provided to patient. Rn aware
--- NOTE | 2024-04-28 09:23 | MHC.CARE ---
Pt will be an inpatient psychiatric bedsearch.
--- NOTE | 2024-04-28 10:57 | PC.NURSE ---
pt hesitant to do EKG, will re-attempt in 30 minutes
--- NOTE | 2024-04-28 13:02 | PC.NURSE ---
Patient pacing in halls, yelling at times, calm at times. awaiting for admission
--- NOTE | 2024-04-28 13:13 | PHA.MEDREC ---
Addendum entered by Indu Smiley RP 04/28/24 13:26: Reviewed by [facility] Original Note: Pharmacy Consult ? Medication Reconciliation Pharmacy has reviewed the medication reconciliation done by nursing. No claims.
--- NOTE | 2024-04-28 13:21 | PC.NURSE ---
patient reports he was exercising in the back of the pod in the backroom when he hurt his right arm. He is reporting right upper arm and right side pain. Patient demanding to speak with doctor and call 911. BELEN galarza
--- NOTE | 2024-04-28 14:50 | PC.NURSE ---
Patient reporting that he does not want to eat, patient has not eaten since being here in the pod. Patient only willing to drink coffee and other liquids
--- NOTE | 2024-04-28 14:51 | MHC.EDTECH ---
While speaking with patient, patient informed this tech that he was not eating and having a silent protest for being forced to be here. Patient has refused breakfast and lunch and only drinking fluids. RN aware.
--- NOTE | 2024-04-28 16:16 | PC.NURSE ---
pt increasingly agitated that he has not gone upstairs yet, patient is aware that he is now medically clear and we are waiting for M5 staff. Pt aware and calmer now
[2024-04-28 17:10] VITALS: BP 133/84; PULSE 94; RESP 16; TEMP 36.9; O2SAT 99
[2024-04-28 17:55] VITALS: BMI 23.9
[2024-04-28] MEDS: LORazepam 1 MG TABLET PO (18:43)
[2024-04-28] MEDS: Nicotine 21 MG PATCH.TD24 TRANSDERMA (18:43)
[2024-04-28] MEDS: Nicotine Polacrilex 2 MG GUM 4 MG BUCCAL (18:44)
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
[2024-04-28 20:11] LABS: Alanine Aminotransferase 29 U/L (0-40); Alkaline Phosphatase 60 U/L (39-117); Anion Gap 16 (12-20); Aspartate Amino Transferase 75 U/L (5-37); Bilirubin Total 0.4 mg/dL (0.0-1.0); Blood Urea Nitrogen 9 mg/dL (9-16); Carbon Dioxide 29 mmol/L (22-29); Chloride 102 mmol/L (96-108); Estimated Glomerular Filt Rate > 60; Glucose Random 81 mg/dL (60-115); Potassium 5.2 mmol/L (3.3-5.1); Sodium 142 mmol/L (135-145); Total Protein 8.4 g/dL (6.5-8.0)
[2024-04-28] MEDS: HaloperidoL 5 MG TABLET PO (21:21)
[2024-04-28] MEDS: Benztropine Mesylate 1 MG TABLET PO (21:21)
[2024-04-28] MEDS: hydrOXYzine HCL 25 MG TABLET PO (21:21)
[2024-04-28] MEDS: traZODone HCL 50 MG TABLET PO (21:21)
[2024-04-29 08:00] VITALS: BP 99/62; PULSE 88; RESP 18; TEMP 36.6; O2SAT 98
[2024-04-29] MEDS: Nicotine Polacrilex 2 MG GUM 4 MG BUCCAL ×5 (09:01→19:34)
[2024-04-29] MEDS: HaloperidoL 5 MG TABLET PO (09:01)
[2024-04-29 09:48] LABS: Estimated Average Glucose 103 mg/dL; Hemoglobin A1C 139.1798 umol/L; Hemoglobin A1c % 5.2 % (<6.0); Total Hemoglobin (HGBA1C) 4162.7088 umol/L
[2024-04-29 10:23] LABS: Folate 15.2 ng/mL (> or = 4.0); Vitamin B12 406 pg/mL (200-900)
[2024-04-29] MEDS: hydrOXYzine HCL 25 MG TABLET PO ×2 (11:09→16:31)
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
[2024-04-29] MEDS: LORazepam 1 MG TABLET PO (11:42)
[2024-04-29 15:52] VITALS: BMI 24.3
[2024-04-29] MEDS: Flu Vacc TS2024-25(6mos up)/PF 0.5 ML SYRINGE IM (16:59)
[2024-04-29 20:00] VITALS: BP 126/91; PULSE 111; RESP 18; TEMP 37; O2SAT 99
[2024-04-29] MEDS: Benztropine Mesylate 1 MG TABLET PO (20:29)
[2024-04-29] MEDS: OLANZapine 10 MG TABLET 20 MG PO (20:29)
[2024-04-29] MEDS: traZODone HCL 50 MG TABLET PO (20:32)
[2024-04-30] MEDS: Acetaminophen 325 MG TABLET 650 MG PO (00:42)
[2024-04-30] MEDS: LORazepam 1 MG TABLET PO (00:43)
[2024-04-30] MEDS: Nicotine Polacrilex 2 MG GUM 4 MG BUCCAL ×4 (01:11→09:52)
[2024-04-30] MEDS: hydrOXYzine HCL 25 MG TABLET PO (06:17)
[2024-04-30 08:00] VITALS: BP 140/94; PULSE 115; RESP 20; TEMP 36.4
[2024-04-30] MEDS: Benztropine Mesylate 1 MG TABLET PO (08:40)
[2024-04-30] MEDS: HaloperidoL 5 MG TABLET PO (09:51)
[2024-04-30 10:20] LABS: Cholesterol 136 mg/dL (<200); HDL Cholesterol 41 mg/dL (>40); LDL Cholesterol Calculated 79 mg/dL (<100); Triglycerides 84 mg/dL (<150)
[2024-04-30 10:36] LABS: Free T4 (Free Thyroxine) 1.21 ng/dL (0.71-1.85); Thyroid Stimulating Hormone 0.93 uIU/mL (0.32-4.0)
--- NOTE | 2024-04-30 10:37 | HO.PSYCHPN ---
Subjective Subjective Reason For Visit: Disorganization , alcohol abuse Diagnostics Vital Signs (24Hr): Vital Signs - 24 hr 04/29/24 20:00 Temperature 98.6 F Pulse Rate 111 H Respiratory Rate 18 Blood Pressure 126/91 H Pulse Oximetry 99 Oxygen Delivery Method Room Air BMI result Body Mass Index 24.3 Labs 04/27/24 12:38 04/28/24 19:42 Labs: Laboratory Results - last 48 hr 04/28/24 04/29/24 04/30/24 19:42 09:02 09:21 Sodium 142 Potassium 5.2 H Chloride 102 Carbon Dioxide 29 Anion Gap 16 BUN 9 Creatinine 0.82 Estim Creat Clear Calc 122.0 Estimated GFR > 60 Random Glucose 81 Estimat Average Glucose 103 Hemoglobin A1c % 5.2 Calcium 10.0 Magnesium 2.0 Total Bilirubin 0.4 AST 75 H ALT 29 Alkaline Phosphatase 60 Total Protein 8.4 H Albumin 5.0 Triglycerides 84 Cholesterol 136 LDL Cholesterol, Calc 79 HDL Cholesterol 41 Vitamin B12 406 Folate 15.2 TSH 0.93 Free T4 1.21 Medications Medications Current Medications Acetaminophen (Acetaminophen 325 Mg Tablet) 650 mg PO Q6H PRN PRN Reason: Headache/Pain, Scale 1-10 Last Admin: 04/30/24 00:42 Dose: 650 mg Al Hydroxide/Mg Hydroxide (Magnesium Hydrox/Alum Hydrox 30 Ml Oral.Susp) 30 ml PO Q6H PRN PRN Reason: Heartburn/Nausea Benztropine Mesylate (Benztropine Mesylate 1 Mg Tablet) 1 mg PO BID TETO Last Admin: 04/30/24 08:40 Dose: 1 mg Haloperidol (Haloperidol 5 Mg Tablet) 5 mg PO TID PRN PRN Reason: zach, agitation, psychosis Last Admin: 04/30/24 09:51 Dose: 5 mg Hydroxyzine HCl (Hydroxyzine Hcl 25 Mg Tablet) 25 mg PO Q6H PRN PRN Reason: mild anxiety Last Admin: 04/30/24 06:17 Dose: 25 mg Lorazepam (Lorazepam 1 Mg Tablet) 1 mg PO Q4H PRN PRN Reason: agitation Last Admin: 04/30/24 00:43 Dose: 1 mg Magnesium Hydroxide (Milk Of Magnesia 30 Ml Oral.Susp) 30 ml PO DAILY PRN PRN Reason: Constipation Nicotine (Nicotine 21 Mg Patch.Td24) 21 mg TRANSDERMA DAILY PRN PRN Reason: Nicotine Cravings Last Admin: 04/28/24 18:43 Dose: 21 mg Nicotine Polacrilex (Nicotine Polacrilex 2 Mg Gum) 4 mg BUCCAL Q2H PRN PRN Reason: Nicotine Cravings Last Admin: 04/30/24 09:52 Dose: 2 mg Olanzapine (Olanzapine 10 Mg Tablet) 20 mg PO BEDTIME TETO Last Admin: 04/29/24 20:29 Dose: 20 mg Trazodone HCl (Trazodone Hcl 50 Mg Tablet) 50 mg PO BEDTIME MRX1 PRN PRN Reason: Insomnia Last Admin: 04/29/24 20:32 Dose: 50 mg Allergies Allergies Allergy/AdvReac Type Severity Reaction Status Date / Time Milk Containing Products Allergy Unknown UNKNOWN Verified 04/27/24 12:52 (Dairy) [MILK CONTAINING PRODUCTS] Assessment & Plan Time Spent With Patient Time: Total time managing care of this patient today ____ minutes.
--- NOTE | 2024-04-30 10:54 | P.DS_ITS ---
DS: Providers Provider Date of admission: 04/28/24 12:11 Primary care physician: Unknown Physician DS: Medications Discharge Medications Home Medications: Home Medications ?Medication ?Instructions ?Recorded ?Confirmed No Known Home Meds 03/17/24 04/27/24 Data Data Completed and Pending Completed studies during hospitalization [Text1]: 04/27/24 04/27/24 04/28/24 12:38 23:48 19:42 WBC 7.2 RBC 4.70 Hgb 14.8 Hct 43.3 MCV 92.1 MCH 31.5 MCHC 34.2 RDW 12.8 Plt Count 370 MPV 10.0 Immature Gran % (Auto) 0.3 Neut % (Auto) 60.7 Lymph % (Auto) 26.2 [place] % (Auto) 11.0 Eos % (Auto) 1.4 Baso % (Auto) 0.4 Lymph # (Auto) 1.9 [place] # (Auto) 0.8 Eos # (Auto) 0.1 Baso # (Auto) 0.0 Abs Immat Gran (auto) 0.02 Absolute Neuts (auto) 4.4 Absolute Nucleated RBC 0.000 Nucleated RBC % (auto) 0.0 Sodium 140 142 Potassium 4.4 5.2 H Chloride 106 102 Carbon Dioxide 27 29 Anion Gap 11 L 16 BUN 3 L 9 Creatinine 0.68 0.82 Estim Creat Clear Calc 126.6 122.0 Estimated GFR > 60 > 60 Random Glucose 105 81 Estimat Average Glucose Hemoglobin A1c % Calcium 9.8 D 10.0 Magnesium Total Bilirubin 0.4 0.4 AST 24 75 H ALT 18 29 Alkaline Phosphatase 59 60 Total Protein 8.4 H 8.4 H Albumin 5.1 H 5.0 Triglycerides Cholesterol LDL Cholesterol, Calc HDL Cholesterol Vitamin B12 Folate TSH Free T4 Urine Color Yellow Urine Appearance Clear Urine pH 7.5 Ur Specific [place] 1.020 Urine Protein Negative Urine Glucose (UA) Negative Urine Ketones Trace Urine Blood Negative Urine Nitrite Negative Ur Leukocyte Esterase Negative Salicylates < 5.0 L Urine Opiates Screen Not Detected Ur Buprenorphine Scrn Not Detected Ur Oxycodone Screen Not Detected Urine Methadone Screen Not Detected Urine Fentanyl Screen Not Detected Acetaminophen < 3 Ur Barbiturates Screen Not Detected Ur Phencyclidine Scrn Not Detected Ur Amphetamines Screen Not Detected U Benzodiazepines Scrn Not Detected Urine Cocaine Screen Not Detected U Marijuana (THC) Screen POSITIVE H Ethyl Alcohol < 10 04/29/24 04/30/24 09:02 09:21 WBC RBC Hgb Hct MCV MCH MCHC RDW Plt Count MPV Immature Gran % (Auto) Neut % (Auto) Lymph % (Auto) [place] % (Auto) Eos % (Auto) Baso % (Auto) Lymph # (Auto) [place] # (Auto) Eos # (Auto) Baso # (Auto) Abs Immat Gran (auto) Absolute Neuts (auto) Absolute Nucleated RBC Nucleated RBC % (auto) Sodium Potassium Chloride Carbon Dioxide Anion Gap BUN Creatinine Estim Creat Clear Calc Estimated GFR Random Glucose Estimat Average Glucose 103 Hemoglobin A1c % 5.2 Calcium Magnesium 2.0 Total Bilirubin AST ALT Alkaline Phosphatase Total Protein Albumin Triglycerides 84 Cholesterol 136 LDL Cholesterol, Calc 79 HDL Cholesterol 41 Vitamin B12 406 Folate 15.2 TSH 0.93 Free T4 1.21 Urine Color Urine Appearance Urine pH Ur Specific [place] Urine Protein Urine Glucose (UA) Urine Ketones Urine Blood Urine Nitrite Ur Leukocyte Esterase Salicylates Urine Opiates Screen Ur Buprenorphine Scrn Ur Oxycodone Screen Urine Methadone Screen Urine Fentanyl Screen Acetaminophen Ur Barbiturates Screen Ur Phencyclidine Scrn Ur Amphetamines Screen U Benzodiazepines Scrn Urine Cocaine Screen U Marijuana (THC) Screen Ethyl Alcohol DS: Summary Time Spent with Patient Time attestation: Total time managing care of this patient today ____ minutes. Discharge Plan Discharge Referrals: [facility] [Primary Care Provider] - 1 Week Discharge Medications: No Action No Known Home Meds Print Language: Sami
== END 2024-04-30 11:36 | disposition home or self-care (01) | DRG 753 ==
LOC: HO.ED 22:31 → HO.PM5 04-28 12:45
PROVIDERS: Admitting Provider Clinical Nurse Specialist Psychiatric/Mental Health, Adult; Emergency Provider Emergency Medicine; Visit Provider Clinical Nurse Specialist Psychiatric/Mental Health, Adult
DX: F31.9 Bipolar disorder, unspecified (principal); F19.90 Other psychoactive substance use, unspecified, uncomplicated; Z23 Encounter for immunization; Z79.899 Other long term (current) drug therapy
CPT/HCPCS: 36415; 80053; 80061; 80143; 80179; 80307; 81003; 82607; 82746; 83036; 83735; 84439; 84443; 85025; 90656; 93005; 99285; J1200; J1630; J2060; S9485

== ENCOUNTER → 2024-04-28 11:31 | Outpatient (BNV) | payer OTHER, SELFPAY | PROVIDERS: Admitting Provider Clinical Nurse Specialist Psychiatric/Mental Health, Adult; Emergency Provider Emergency Medicine; Visit Provider Internal Medicine Cardiovascular Disease | DX: I49.9 Cardiac arrhythmia, unspecified (principal) | CPT/HCPCS: 93010 ==

== ENCOUNTER → 2024-04-28 12:11 | Outpatient (BNV) | payer OTHER, SELFPAY | PROVIDERS: Admitting Provider Clinical Nurse Specialist Psychiatric/Mental Health, Adult; Emergency Provider Emergency Medicine; Visit Provider Clinical Nurse Specialist Psychiatric/Mental Health, Adult | DX: F31.0 Bipolar disorder, current episode hypomanic (principal); F19.90 Other psychoactive substance use, unspecified, uncomplicated | CPT/HCPCS: 99232 ==